=== PATIENT | male | born 1965 | race American Indian/Alaskan Native ===

== ENCOUNTER 2021-10-26 08:00 | Outpatient (CLI) | payer OTHER | END 2021-10-26 08:30 | disposition home or self-care (01) | LOC: PPH VACUNA 08:00 | PROVIDERS: ATTEND Emergency Medicine Pediatric Emergency Medicine | DX: Z23 Encounter for immunization (principal) ==

== ENCOUNTER 2022-07-18 07:54 | Day surgery (SDC) | payer OTHER ==
[~2022-07-18 07:54] MED LIST: ALLOPURINOL100 MG PO; AVAPRO300 MG PO; LIPITOR20 MG PO; REPATHA PU420 MG/3.5 SUBCUTANEO
[2022-07-18] MEDS ORDERED: PERCOCET 5-3251 EACH PO (15:43)
== END 2022-07-18 18:30 | disposition home or self-care (01) ==
LOC: CIR.AMB 07:54
PROVIDERS: ATTEND Surgery
DX: C73 Malignant neoplasm of thyroid gland (principal); Z20.822 Contact with and (suspected) exposure to COVID-19; Z88.8 Allergy status to other drugs, medicaments and biological substances; Z87.891 Personal history of nicotine dependence

== ENCOUNTER 2025-09-22 15:26 | Outpatient (CLI) | payer OTHER ==
[~2025-09-22 15:26] MED LIST changes: +PERCOCET 5-3251 EACH PO
== END 2025-09-22 15:31 | disposition home or self-care (01) ==
LOC: RAD 15:26
DX: R06.02 Shortness of breath (principal); R00.2 Palpitations